=== PATIENT | male | born 1970 | race Caucasian/White ===

== ENCOUNTER 2022-10-11 23:21 | Emergency (ER) | payer MEDICARE, MEDICAID ==
[~2022-10-11] VITALS: Ht 188 cm; Wt 90.9 kg
[2022-10-11] MEDS ORDERED: ATOR10TA PO (23:34)
[2022-10-12 00:15] VITALS: BP 114/77
[2022-10-12] MEDS ORDERED: CORTSOL AD (01:08)
[2022-10-12] MEDS ORDERED: AMOX250C4 PO (01:09)
== END 2022-10-12 01:16 | disposition home or self-care (01) ==
LOC: EMS 23:26
DX: H66.91 Otitis media, unspecified, right ear (principal); H60.91 Unspecified otitis externa, right ear; Z98.890 Other specified postprocedural states
CPT/HCPCS: 99283; Z7502

== ENCOUNTER 2022-11-09 21:41 | Emergency (ER) | payer MEDICARE, MEDICAID ==
[~2022-11-09] VITALS: Ht 188 cm; Wt 90.9 kg
[~2022-11-09 21:41] MED LIST: AMOX250C4 PO; ATOR10TA PO; CORTSOL AD
[2022-11-09 21:50] VITALS: BP 105/70
[2022-11-09] MEDS ORDERED: AMOX250C4 PO (22:28)
[2022-11-09] MEDS ORDERED: CORTSOL AS (22:28)
== END 2022-11-09 22:41 | disposition home or self-care (01) ==
LOC: EMS 21:43
DX: H60.92 Unspecified otitis externa, left ear (principal); H66.92 Otitis media, unspecified, left ear; Z98.890 Other specified postprocedural states
CPT/HCPCS: 99283; Z7502

== ENCOUNTER 2022-12-06 23:34 | Emergency (ER) | payer OTHER ==
[~2022-12-06] VITALS: Ht 188 cm; Wt 95.5 kg
[~2022-12-06 23:34] MED LIST changes: +CORTSOL AS
[2022-12-06 23:41] VITALS: TEMP 98
[2022-12-07] MEDS ORDERED: HALOPERIDOL LACTATE 5 MG/ML VIAL IM ONE (01:15)
[2022-12-07] MEDS ORDERED: LORazepam 2 MG/ML VIAL IM ONE (01:15)
[2022-12-07] MEDS ORDERED: DiphenhydrAMINE HCL 50 MG/ML VIAL IM ONE (01:15)
[2022-12-07] MEDS ORDERED: CIPOTIC AU (01:23)
[2022-12-07] MEDS ORDERED: AZIT250T9 PO (01:23)
[2022-12-07 01:29] VITALS: BP 125/73; PULSE 84; RESP 16
== END 2022-12-07 01:30 | disposition home or self-care (01) ==
LOC: EMS 23:50
DX: H66.93 Otitis media, unspecified, bilateral (principal); H60.93 Unspecified otitis externa, bilateral
CPT/HCPCS: 99283; Z7502